=== PATIENT | female | born 1995 | race Caucasian/White ===

== ENCOUNTER 2022-12-31 20:27 | Outpatient (CLI) | payer BC, SELFPAY ==
--- NOTE | 2022-12-31 20:27 | PC.NURSE ---
pt here due to swelling and itching. pt complains occasional headaches. denies epigastoric pain. will call Dr. Hirsch for lab order
[2022-12-31 20:53] VITALS: BP 132/81; PULSE 87
[2022-12-31 21:00] VITALS: BP 131/78; PULSE 94
[2022-12-31 21:15] VITALS: BP 130/73; PULSE 86
[2022-12-31 21:20] LABS: Basophils Absolute Auto 0.1 K/mm3 (0.0-0.1); Basophils Percent Auto 0.5 % (0.2-1.2); Eosinophils Absolute Auto 0.3 K/mm3 (0-0.3); Hematocrit 37.3 % (37.0-47.0); Hemoglobin 12.6 g/dL (12.0-15.0); Immature Granulocyte Absolute 0.15 K/mm3 (0.00-0.031); Immature Granulocyte Percent A 1.1 % (0-0.5); Lymphocytes Absolute Auto 2.18 K/mm3 (0.9-3.2); Lymphocytes Percent Auto 16.5 % (18.3-44.2); Mean Corpuscular HGB Conc 33.8 g/dl (32-36); Mean Corpuscular Hemoglobin 31.1 pg (26-34); Mean Corpuscular Volume 92.1 fl (80-100); Mean Platelet Volume 12.1 fl (7.4-10.4); Monocytes Percent Auto 7.9 % (2.6-8.5); Neutrophils Absolute Auto 9.5 K/mm3 (1.3-6.7); Platelet Count Result 213 k/mm3 (150-375); Red Blood Count 4.05 M/mm3 (4.2-5.4); Red Cell Distribution Width 12.8 % (11.5-14.5); White Blood Count 13.2 K/mm3 (4.5-10.0)
[2022-12-31 21:30] LABS: Alanine Aminotransferase 19 U/L (6-35); Albumin Level 3.2 g/dL (3.5-5.1); Alkaline Phosphatase 165 U/L (38-126); Anion Gap 5 mmol/L (8-16); Aspartate Amino Transferase 24 U/L (14-36); Bilirubin,Total 0.3 mg/dL (0.2-1.3); Blood Urea Nitrogen 8 mg/dL (7-17); Calcium 8.4 mg/dL (8.4-10.2); Carbon Dioxide 22 mmol/L (22-30); Chloride 107 mmol/L (98-107); Estimated Glomerular Filt Rate > 60; Glucose 122 mg/dL (65-110); Potassium 3.4 mmol/L (3.4-5.0); Sodium 134 mmol/L (137-145); Uric Acid 4.5 mg/dL (2.5-7.5)
[2022-12-31 21:31] VITALS: BP 132/52; PULSE 85
[2022-12-31 21:32] LABS: Appearance Urine Slightly Cloudy (Clear); Bilirubin Urine Negative (Negative); Blood Urine Negative (Negative); Color Urine Yellow (Yellow); Glucose Urine UA Negative (Negative); Ketones Urine Negative (Negative); Leukocyte Esterase Ur Negative LEU/UL (NEGATIVE); Nitrate Urine Negative (Negative); Protein Urine Negative (Negative); Specific Grav Ur 1.015 (1.001-1.035); Urobilinogen Urine 0.2 mg/dL (<2.0)
[2022-12-31 21:35] LABS: Amorphous Sediment Urine Few; Bacteria Urine 3+ /hpf; Mucus Urine Rare /lpf; Squamous Epithelial Cell Urine Occasional /hpf (Few)
[2022-12-31 21:37] LABS: Add Urine Microscopic? YES
[2022-12-31 21:45] VITALS: BP 123/71; PULSE 85
[2022-12-31 21:50] VITALS: BP 123/71; PULSE 80
[2022-12-31 22:30] LABS: Creatinine Urine 55.3 mg/dL; Total Protein Urine Random 10 mg/dL; Ur Ttl Prot Creatinine Ratio 0.18 mg/mg (0-0.20)
[2023-01-10 13:36] LABS: Chenodeoxycholic Acid <0.5 umol/L (< OR = 3.9); Cholic Acid <0.5 umol/L (< OR = 2.8); Deoxycholic Acid 1.6 umol/L (< OR = 2.3); Total Bile Acids 1.6 umol/L (< OR = 8.3)
== END 2022-12-31 21:56 | disposition home or self-care (01) ==
LOC: ANHOBOP 20:30 → ANHOBPP 01-06 06:26
PROVIDERS: Obstetrics & Gynecology Gynecology; Visit Provider Advanced Practice Midwife
DX: O99.891 Other specified diseases and conditions complicating pregnancy (principal); R60.9 Edema, unspecified; R51.9 Headache, unspecified
CPT/HCPCS: 36415; 59025; 80053; 81001; 81050; 82542; 82570; 84156; 84550; 85025; 87086; 99199

== ENCOUNTER 2023-01-01 08:21 | Outpatient (NON) | payer BC, SELFPAY ==
[2023-01-01 21:29] LABS: Total Protein Urine Random 12 mg/dL
[2023-01-01 21:30] LABS: Creatinine Urine 66.7 mg/dL
[2023-01-01 21:46] LABS: Creatinine 24 Hour Urine 1.8 gm/24 (0.8-1.8); Total Volume 24 Hour Urine 2800 ml
[2023-01-01 21:47] LABS: Specific Gravity Ur 1.015; Total Protein Urine 24 Hr 336 mg/24hr (28-141); Total Volume 24 Hour Urine 2800 ml
== END 2023-01-01 08:22 | disposition home or self-care (01) ==
LOC: ANHLAB 01-29 08:23
PROVIDERS: Obstetrics & Gynecology Gynecology; PCP Nurse Practitioner Family; Visit Provider Advanced Practice Midwife
DX: O13.9 Gestational [pregnancy-induced] hypertension without significant proteinuria, unspecified trimester (principal); O26.899 Other specified pregnancy related conditions, unspecified trimester; L29.9 Pruritus, unspecified; Z3A.00 Weeks of gestation of pregnancy not specified
CPT/HCPCS: 81050; 82570; 84156

== ENCOUNTER 2023-01-08 19:36 | Inpatient (IN) | payer BC, SELFPAY ==
[2023-01-08] VITALS (10 sets, daily range): BP systolic 127–145; BP diastolic 80–87; PULSE 73–91; RESP 18; TEMP 36.5–36.7; BMI 36.5
--- NOTE | 2023-01-08 20:12 | P.PNAN_ITS ---
Anes - Eval Pre Procedure Procedure: Labor Epidural Date/Time: 01/08/23 20:12 Surgeon: Torrey Preop Diagnosis: Labor Pain Pre Op Diagnosis: IOL Patient Data Age: 27 Gender: F Height: Weight: Last Vital Signs Pulse 91 01/08/23 20:01 BP 142/80 H 01/08/23 20:01 Allergies Allergy/AdvReac Type Severity Reaction Status Date / Time No Known Allergies Allergy Verified 12/09/22 13:35 Home Medications Medication Instructions Recorded Confirmed Type aspirin 81 mg tablet 81 mg PO DAILY 12/09/22 12/09/22 History citalopram 20 mg tablet (Celexa) 20 mg PO DAILY 12/09/22 12/09/22 History loratadine 10 mg tablet (Claritin) 10 mg PO DAILY 12/09/22 12/09/22 History prenat.vits,david,hyu-qagn-edylj 1 tablet PO HS 12/09/22 12/09/22 History Patient hx anesthesia problems: none Family hx anesthesia problems: none Results Review: All pre-operative results and documents have been reviewed as part of the pre- operative evaluation. FORMERLY [facility], [facility]1983 Family History Family History Other Patient denies significant medical history Social History Social History Substance use: never Spiritual care concerns: No Exam Day of Procedure 01/08/23 20:12
--- NOTE | 2023-01-08 20:29 | LDADM ---
This patient, Jhoana Chan, was admitted to Labor/Delivery/Recovery 103 on 01/08/23 at 19:36. Plans for labor, pain management and were discussed with patient. Patient/family oriented to hospital policies and general routines including ID bracelet, bed and alarms, visiting hours, pain management, procedures, bathroom and other care routines, personal items, smoking policy, room service/diet and guest tray routines, infant security routines, and visiting hours. Patient/Family are encouraged to report perceived risks to care and to ask questions if they do not understand what they are told or what they should do. See OBIX for further documentation.
[2023-01-08 20:50] LABS: Basophils Absolute Auto 0.1 K/mm3 (0.0-0.1); Basophils Percent Auto 0.4 % (0.2-1.2); Eosinophils Absolute Auto 0.3 K/mm3 (0-0.3); Hematocrit 37.4 % (37.0-47.0); Hemoglobin 12.6 g/dL (12.0-15.0); Immature Granulocyte Absolute 0.16 K/mm3 (0.00-0.031); Immature Granulocyte Percent A 1.2 % (0-0.5); Lymphocytes Absolute Auto 2.11 K/mm3 (0.9-3.2); Lymphocytes Percent Auto 15.3 % (18.3-44.2); Mean Corpuscular HGB Conc 33.7 g/dl (32-36); Mean Corpuscular Hemoglobin 31.3 pg (26-34); Mean Platelet Volume 12.6 fl (7.4-10.4); Monocytes Absolute Auto 0.8 K/mm3 (0.1-0.6); Monocytes Percent Auto 5.5 % (2.6-8.5); Neutrophils Absolute Auto 10.4 K/mm3 (1.3-6.7); Neutrophils Percent Auto 75.6 % (45.5-73.1); Platelet Count Result 211 k/mm3 (150-375); Red Blood Count 4.02 M/mm3 (4.2-5.4); Red Cell Distribution Width 13.1 % (11.5-14.5); White Blood Count 13.8 K/mm3 (4.5-10.0)
[2023-01-08] MEDS: LACTATED RINGERS 1,000 ML 125 ML IV CONT (20:52)
[2023-01-08 21:01] LABS: Alanine Aminotransferase 20 U/L (6-35); Albumin Level 3.6 g/dL (3.5-5.1); Alkaline Phosphatase 152 U/L (38-126); Anion Gap 9 mmol/L (8-16); Aspartate Amino Transferase 24 U/L (14-36); Bilirubin,Total 0.4 mg/dL (0.2-1.3); Blood Urea Nitrogen 11 mg/dL (7-17); Calcium 8.5 mg/dL (8.4-10.2); Carbon Dioxide 18 mmol/L (22-30); Chloride 105 mmol/L (98-107); Estimated CRCL calculation 152 ml/min; Estimated Glomerular Filt Rate > 60; Glucose 120 mg/dL (65-110); Potassium 3.4 mmol/L (3.4-5.0); Sodium 132 mmol/L (137-145)
[2023-01-08] MEDS: DINOPROSTONE 10 MG VAG INSERT VAGINAL (22:30)
[2023-01-09] VITALS (271 sets, daily range): BP systolic 80–157; BP diastolic 50–138; PULSE 72–188; RESP 16–18; TEMP 36.6–37.1; O2SAT 94–100
[2023-01-09] MEDS: ACETAMINOPHEN 325 MG TABLET 650 MG PO (07:09)
--- NOTE | 2023-01-09 09:30 | PC.NURSE ---
Patient pain assessed at 0809 Patient states headache is better. no pain other then feeling some cramping at this time.
--- NOTE | 2023-01-09 10:49 | PM.OBPNLAB ---
Pain Control Date/time seen: 01/09/23 10:35 Pain control: tolerating well Comments: Feeling vaginal discomfort/tenderness Pelvic Exam Dilation (cm): 0 station: -3 Amniotic membrane status: Intact Contractions Monitor mode: External Contraction pattern: Irregular Contraction phase: Contraction Contraction intensity: Mild Status status: Category l Assessment and Plan Assessment: induction ongoing Comments: CNM at bedside. SVE very challenging due to vaginal tenderness. Cervix remains closed. Recommend sublingual misoprostol and then consider pitocin and zazueta balloon placement. All questions answered. Pt's family present and supportive.
[2023-01-09] MEDS: miSOPROStol 25 MCG TABLET PO (11:05)
[2023-01-09] MEDS: LACTATED RINGERS 1,000 ML 125 ML IV CONT ×2 (15:09→19:56)
[2023-01-09] MEDS: OXYTOCIN 30 UNITS/NS 500 ML 30 UNITS/500 ML BAG IV CONT (15:10)
--- NOTE | 2023-01-09 22:07 | WPDANESEPP ---
Anes - Eval Pre Procedure Date/Time: 01/09/232134 Surgeon: Torrey Preop Diagnosis: LABOR PAIN Pre Op Diagnosis: IOL Patient Data Age: 27 Gender: F Height: 1.73 m Weight: 109 kg Last Vital Signs Temp 36.8 C 01/09/23 18:30 Pulse 110 H 01/09/23 22:06 Resp 16 01/09/23 18:30 BP 120/58 L 01/09/23 22:06 Pulse Ox 99 01/09/23 22:02 O2 Del Method Room Air 01/08/23 20:26 Allergies Allergy/AdvReac Type Severity Reaction Status Date / Time No Known Allergies Allergy Verified 12/09/22 13:35 Home Medications Medication Instructions Recorded Confirmed Type aspirin 81 mg tablet 81 mg PO DAILY 12/09/22 12/09/22 History citalopram 20 mg tablet (Celexa) 20 mg PO DAILY 12/09/22 12/09/22 History loratadine 10 mg tablet (Claritin) 10 mg PO DAILY 12/09/22 12/09/22 History prenat.vits,david,ddl-jqkl-ojmmd 1 tablet PO HS 12/09/22 12/09/22 History Patient hx anesthesia problems: none Family hx anesthesia problems: none Results Review: All pre-operative results and documents have been reviewed as part of the pre-operative evaluation. [facility] Family History Family History Other Patient denies significant medical history Social History Social History Smoking status: Never smoker Substance use: never Lack of Transportation: No Lack of Food: Never True Current Housing: I Have Housing Concerned About Future Housing: No Difficulty Paying Gas/Electric Bills: No Difficulty Paying for Meds: No Currently Unemployed: No Education: Bachelor's Degree Difficulty w/ Childcare or Family Care: No Spiritual care concerns: No Exam Day of Procedure 01/09/23 22:07 Patient weight: normal Heart: regular rate and rhythm Lungs: clear to auscultation Airway: Mallampati scale class II Neurological: alert and oriented
--- NOTE | 2023-01-09 22:08 | WPDANESEPN ---
Anes - Epidural Procedure Note Date/Time: 01/09/23 22:08 Consent: I have discussed with the patient/family/POA, the placement of an epidural catheter and the use of epidural narcotic/local anesthetic for labor analgesia and/or postoperative pain management, including associated potential risks, benefits, complications and side effects. I have discussed alternative methods of labor analgesia and/or postoperative pain management. The patient/family/POA, understand(s) and wish(es) to proceed with epidural narcotic/local anesthetic for labor analgesia and/or postoperative pain management. Time-Out: A pre-procedural Time-Out was completed immediately before starting the procedure and confirmed: Patient Identification, Site, Procedure, Patient Position and the Availability of Requisite Equipment. Clinical Indications: Labor Pain Epidural Insertion Note Patient position: sitting Skin prep: chlorhexidine and sterile drape Needle: 17g Tuohy Catheter: 20g Unstyleted Technique: Loss of resistance. Level of insertion: L3/4 Catheter skin margarita (cm): 5 Length in epidural space (cm): 10 Skin anesthesia: lidocaine 1% Test dose: 1.5% Lidocaine with 1:[id number] Epi, negative for subarachnoid Inj and negative for intravascular Inj Time of test dose: 21:55 Observations: tolerated well Complications: none
[2023-01-09] MEDS: ONDANSETRON INJ 4 MG/2 ML VIAL IV PUSH (22:12)
[2023-01-10] VITALS (401 sets, daily range): BP systolic 90–220; BP diastolic 46–148; PULSE 70–171; RESP 14–20; TEMP 36.3–38; O2SAT 92–100
[2023-01-10] MEDS: miSOPROStol 25 MCG TABLET BY MOUTH (01:00)
[2023-01-10] MEDS: LACTATED RINGERS 1,000 ML 125 ML IV CONT ×3 (05:04→18:53)
--- NOTE | 2023-01-10 07:54 | PM.OBPNLAB ---
Pain Control Date/time seen: 01/10/23 07:45 Pain control: tolerating well and epidural Pelvic Exam Dilation (cm): 1 Effacement (%): 70 station: -3 Amniotic membrane status: Intact Contractions Monitor mode: External Contraction pattern: Irregular Contraction phase: Contraction Contraction intensity: Mild Status status: Category l Assessment and Plan Pitocin rate (mU/min): 10 Assessment: induction ongoing Comments: CNM to bedside. Discussed plan of care. Discussed Byrnes balloon placement including risks and benefits. Patient and spouse are agreeable. Byrnes balloon placed through cervical os using stylet. Inflated with 60 mL sterile saline and stylet removed. Tubing secured patient's thigh. Recommend gentle traction at least once per hour on the Byrnes balloon. Will plan to up titrate Pitocin as needed to achieve adequate contraction pattern. Once the Byrnes balloon is expelled, plan for amniotomy. All questions answered. Anticipate vaginal . Dr. Hirsch updated.
--- NOTE | 2023-01-10 12:09 | P.PNOB_ITS ---
Pain Control Date/time seen: 01/10/23 1155 Pain control: tolerating well and epidural Pelvic Exam Dilation (cm): 5 Effacement (%): 75 station: -3 Amniotic membrane status: Intact Comments: head well applied to cervix. Contractions Monitor mode: External Contraction frequency: 3 Contraction duration: 60 Contraction pattern: Irregular Contraction phase: Contraction Contraction intensity: Mild Status status: Category l Assessment and Plan Pitocin rate (mU/min): 12 Assessment: induction ongoing Comments: CNM to bedside. Byrnes balloon recently expelled. Discussed recommendation for amniotomy and IUPC placement. Pt and spouse agreeable. AROM performed with minimal fluid returned. IUPC placed and returned with dark brown amniotic fluid. Patient tolerated procedure well. Discussed meconium stained fluid with pt and that 911 operator would be present for . Recommend frequent maternal repositioning. Anticipate vaginal .
[2023-01-10 12:32] LABS: Rapid Plasma Reagin Non-Reactive (NonReactive)
[2023-01-10] MEDS: ONDANSETRON INJ 4 MG/2 ML VIAL IV PUSH ×2 (15:01→18:52)
--- NOTE | 2023-01-10 17:32 | PM.OBPNLAB ---
Pain Control Date/time seen: 01/10/23 17:20 Pain control: tolerating well and epidural Pelvic Exam Dilation (cm): 5 Effacement (%): 80 station: -2 Amniotic membrane status: Ruptured Contractions Monitor mode: Internal Contraction frequency: 3 (2-5) Contraction duration: 60 (60-90) Contraction pattern: Irregular Status status: Category l Assessment and Plan Pitocin rate (mU/min): 12 Assessment: induction ongoing Plan: continuous present management Comments: SVE with change in station. Discussed plan of care with pt and family. Recommend increasing pitocin as needed to achieve adequate MVUs. Once MVUs adequate x 2 hours, recommend SVE. Tracing Cat 1 .
[2023-01-10] MEDS: diphenhydrAMINE HCl INJ 50 MG/ML VIAL 25 MG IV PUSH ×3 (17:42→21:07)
[2023-01-10] MEDS: CALCIUM CARBONATE (TUMS) 500 MG (200 MG ELEMENTAL) 400 MG (21:05)
[2023-01-10] MEDS: CALCIUM CARBONATE (TUMS) 500 MG (200 MG ELEMENTAL) 400 MG PO (21:05)
[2023-01-10] MEDS: OXYTOCIN 30 UNITS/NS 500 ML 30 UNITS/500 ML BAG IV CONT (22:27)
[2023-01-10] MEDS: AMPICILLIN 2 GM/NS 100 ML 2 GM/100 ML BAG IVPB (22:58)
--- NOTE | 2023-01-10 23:10 | WPDANESEPN ---
Anes - Epidural Procedure Note Date/Time: 01/10/23 23:10 Consent: I have discussed with the patient/family/POA, the placement of an epidural catheter and the use of epidural narcotic/local anesthetic for labor analgesia and/or postoperative pain management, including associated potential risks, benefits, complications and side effects. I have discussed alternative methods of labor analgesia and/or postoperative pain management. The patient/family/POA, understand(s) and wish(es) to proceed with epidural narcotic/local anesthetic for labor analgesia and/or postoperative pain management. Time-Out: A pre-procedural Time-Out was completed immediately before starting the procedure and confirmed: Patient Identification, Site, Procedure, Patient Position and the Availability of Requisite Equipment. Clinical Indications: Labor Pain Epidural Insertion Note Patient position: sitting Skin prep: chlorhexidine and sterile drape Needle: 17g Tuohy Catheter: 20g Unstyleted Technique: Loss of resistance. Level of insertion: L4/5 Catheter skin margarita (cm): 6 Length in epidural space (cm): 11 Skin anesthesia: lidocaine 1% Test dose: 1.5% Lidocaine with 1:[id number] Epi, negative for subarachnoid Inj and negative for intravascular Inj Time of test dose: 22:50 Observations: tolerated well Complications: none
[2023-01-10] MEDS: GENTAMICIN 80MG/SOD CHL 50 ML 80 MG/50 ML BAG 100 MG IVPB (23:33)
[2023-01-11] VITALS (222 sets, daily range): BP systolic 86–160; BP diastolic 48–125; PULSE 72–141; RESP 13–20; TEMP 36.2–37.4; O2SAT 91–100
[2023-01-11] MEDS: AMPICILLIN 1 GM/NS 50 ML 1 GM/50 ML BAG IVPB ×2 (02:59→07:01)
[2023-01-11] MEDS: FAMOTIDINE 10 MG TABLET PO (03:01)
[2023-01-11] MEDS: LORATADINE 10 MG TABLET PO (03:01)
[2023-01-11] MEDS: LACTATED RINGERS 1,000 ML 125 ML IV CONT ×2 (04:44→09:30)
[2023-01-11] MEDS: GENTAMICIN 80MG/SOD CHL 50 ML 80 MG/50 ML BAG 100 MG IVPB (07:37)
--- NOTE | 2023-01-11 10:07 | PM.OBPNLAB ---
Pain Control Date/time seen: 01/11/23 0905 Comments: Having intense uterine contraction pain. Epidural not working per pt. Anesthesia to assess. Pt fatigued and frustrated, asking for section . Contractions Monitor mode: Internal Contraction frequency: 3 (2-5) Contraction pattern: Irregular Contraction phase: Contraction Contraction intensity: Mild Status status: Category l Assessment and Plan Comments: Pitocin discontinued per pt request. Plan to have anesthesia evaluate.
--- NOTE | 2023-01-11 10:15 | PM.IMHP ---
H&P: HPI History of Present Illness Date/Time: 01/11/23 0930 Chief Complaint: labor, contractions Narrative: 27 y.o. at 40 weeks 4 days. IOL Preeclampsia Anxiety/Depression Review of Systems Review of Systems: All systems reviewed & are unremarkable except as noted in HPI and below PMFSH Family History Family History Other Patient denies significant medical history Social History Social History Smoking status: Never smoker Substance use: never Lack of Transportation: No Lack of Food: Never True Current Housing: I Have Housing Concerned About Future Housing: No Difficulty Paying Gas/Electric Bills: No Difficulty Paying for Meds: No Currently Unemployed: No Education: Bachelor's Degree Difficulty w/ Childcare or Family Care: No Spiritual care concerns: No Meds Home Medications and Allergies Home Medications Medication Instructions Recorded Confirmed Type aspirin 81 mg tablet 81 mg PO DAILY 12/09/22 12/09/22 History citalopram 20 mg tablet (Celexa) 20 mg PO DAILY 12/09/22 12/09/22 History loratadine 10 mg tablet (Claritin) 10 mg PO DAILY 12/09/22 12/09/22 History prenat.vits,david,ymp-fhue-raotb 1 tablet PO HS 12/09/22 12/09/22 History Allergies Allergy/AdvReac Type Severity Reaction Status Date / Time No Known Allergies Allergy Verified 12/09/22 13:35 Vital Signs Vital Signs - 24 hr 01/10/23 10:16 01/10/23 10:17 01/10/23 10:22 Temperature Pulse Rate 86 Respiratory Rate Blood Pressure 149/73 H Pulse Oximetry 99 99 Oxygen Delivery 01/10/23 10:27 01/10/23 10:30 01/10/23 10:32 Temperature 99.5 F Pulse Rate 94 Respiratory Rate Blood Pressure 134/78 Pulse Oximetry 99 99 Oxygen Delivery 01/10/23 10:37 01/10/23 10:42 01/10/23 10:45 Temperature Pulse Rate 85 Respiratory Rate Blood Pressure 113/69 Pulse Oximetry 99 98 Oxygen Delivery 01/10/23 10:47 01/10/23 10:52 01/10/23 10:57 Temperature Pulse Rate Respiratory Rate Blood Pressure Pulse Oximetry 99 98 98 Oxygen Delivery 01/10/23 11:00 01/10/23 11:02 01/10/23 11:07 Temperature Pulse Rate 87 Respiratory Rate Blood Pressure 126/70 Pulse Oximetry 99 98 Oxygen Delivery 01/10/23 11:12 01/10/23 11:15 01/10/23 11:17 Temperature Pulse Rate 85 Respiratory Rate Blood Pressure 135/83 Pulse Oximetry 99 98 Oxygen Delivery 01/10/23 11:22 01/10/23 11:27 01/10/23 11:30 Temperature Pulse Rate 94 Respiratory Rate Blood Pressure 154/128 H Pulse Oximetry 98 99 Oxygen Delivery 01/10/23 11:32 01/10/23 11:37 01/10/23 11:42 Temperature Pulse Rate Respiratory Rate Blood Pressure Pulse Oximetry 98 99 99 Oxygen Delivery 01/10/23 11:45 01/10/23 11:47 01/10/23 11:52 Temperature Pulse Rate 84 Respiratory Rate Blood Pressure 147/94 H Pulse Oximetry 99 99 Oxygen Delivery 01/10/23 11:57 01/10/23 12:01 01/10/23 12:06 Temperature Pulse Rate Respiratory Rate Blood Pressure Pulse Oximetry 100 99 99 Oxygen Delivery 01/10/23 12:08 01/10/23 12:13 01/10/23 12:15 Temperature Pulse Rate 83 Respiratory Rate Blood Pressure 137/75 Pulse Oximetry 99 98 Oxygen Delivery 01/10/23 12:18 01/10/23 12:23 01/10/23 12:28 Temperature Pulse Rate Respiratory Rate Blood Pressure Pulse Oximetry 99 98 98 Oxygen Delivery 01/10/23 12:30 01/10/23 12:33 01/10/23 12:38 Temperature 99.2 F Pulse Rate 87 Respiratory Rate Blood Pressure 124/62 Pulse Oximetry 99 98 Oxygen Delivery 01/10/23 12:43 01/10/23 12:45 01/10/23 12:48 Temperature Pulse Rate 82 Respiratory Rate Blood Pressure 120/60 Pulse Oximetry 97 97 Oxygen Delivery 01/10/23 12:53 01/10/23 12:58 02
--- NOTE | 2023-01-11 11:00 | PM.OBPNLAB ---
Pain Control Date/time seen: 01/11/23 1045 Pain control: tolerating well Comments: Pt now has good pain relief from epidural. Pelvic Exam Dilation (cm): 5 Effacement (%): 80 station: -1 Amniotic membrane status: Ruptured Comments: Capput present Contractions Monitor mode: Internal Contraction pattern: Irregular Contraction phase: Contraction Contraction intensity: Mild Status status: Category l Assessment and Plan Comments: Pitocin remains off. Discussed cervical exam with pt and plan of care. Pt desires delivery. Discussed risks, benefits, and expectations. Dr. Hirsch notified. Plan to leave pitocin off and keep pt NPO. Discussed expectations and follow up. Family remains present and supportive.
[2023-01-11] MEDS: ONDANSETRON INJ 4 MG/2 ML VIAL IV PUSH (11:14)
[2023-01-11] MEDS: ceFAZolin 2 GM/D5W 50 ML 2 GM/50 ML BAG IVPB (12:17)
[2023-01-11] MEDS: KETOROLAC 30 MG/ML VIAL (*BKC) IV PUSH (13:02)
--- NOTE | 2023-01-11 13:07 | W.PM.PROC2 ---
Procedure Note - Detailed Date of Procedure 01/11/23 Pre-op Diagnosis Intrauterine at 40 4/7 weeks preeclampsia failure to progress Post-op Diagnosis Same Procedure Performed primary low-transverse section Surgeon Rosalinda Hirsch MD Anesthesia Epidural Findings female right occiput posterior with 6 [id number] and 8 [id number] weighing 8lb 11oz thick meconium stained fluid, infant, placenta, uterus normal-appearing tubes, ovaries, uterus Description of Procedure The patient was taken to the operating room and placed under anesthesia in the dorsal supine position with a leftward tilt. Once anesthesia was deemed adequate, a Pfannenstiel skin incision was made with a scalpel and carried down to the underlying layer of fascia which was nicked in the midline. The fascial incision was extended laterally using Rodriguez scissors. Ochsner was used to tent the fascia which was then dissected off using sharp dissection. The rectus muscles are in the midline and the peritoneum tented and entered with a Peon. The incision was extended with blunt traction. The bladder blade is placed. The vesicouterine peritoneum was tented and entered with Metzenbaum and extended laterally. The bladder flap was created digitally. The bladder blade is replaced. The bladder is noted to be very edematous. The lower uterine segment was incised in a transverse fashion with a scalpel and extended laterally using blunt traction. The infant's head was brought up into the incision and noted to be deep in the pelvis. The was fully delivered with assistance from the 1st assist applying pressure at the fundus. The cord was clamped and cut the handed to the awaiting OB nurse. The placenta was removed using manual traction after cord gases and cord blood were drawn. The uterus is cleared of all clots and debris and exteriorized. The right angle extended downward to the sulcus. The angle was grasped with 2 Allis clamps. The distal edge was grasped with ring forceps x2. The bladder was extending beyond the bladder flap despite multiple repositioning. . A lap sponge was placed to hold the bladder back and then the bladder blade was replaced with good affect of retraction. The uterine incision was closed using 0 Monocryl in a running locked fashion. Second layer of same suture was used to imbricate and obtain hemostasis. The cul-de-sac is irrigated and the uterus returned to the abdomen. The gutters are cleared of all clots and debris. The incision was again inspected noted to be hemostatic. The lap sponge is removed and the bladder flap inspected. One bleeding vessel was cauterized for hemostasis. The incision and bladder flap are hemostatic and all instruments are removed. The fascia was then closed using 0 Vicryl in a running fashion. Subcutaneous tissues are irrigated and the subcutaneous tissue made hemostatic using Bovie cautery. Skin incision was closed using 4-0 Vicryl in a subcuticular fashion. Dermaflex was placed over the incision. Sponge, needle, and instrument counts are correct per the OR staff. Patient was given Ancef at the time of the incision and the Zithromax was approximately half infused at the time of the incision and continued infusing throughout the case. The patient was taken to recovery in stable condition. Estimated Blood Loss 780 Drains Yes ( Byrnes catheter) Packing No Pathology Yes ( placenta) Complications No immediate complications Condition Stable Disposition Floor
--- NOTE | 2023-01-11 13:15 | PM.OBDSVD ---
DS: Admitting Diagnosis Discharge Date 01/13/23 Admitting Diagnosis intrauterine at 40 weeks for medical induction of labor secondary to preeclampsia DS: Discharge Diagnosis Discharge Diagnosis (1) Preeclampsia: Code(s): O14.90 - Unspecified pre-eclampsia, unspecified trimester Status: Acute (2) delivery delivered: Code(s): O82 - Encounter for delivery without indication Status: Acute (3) Failure to progress in labor, delivered, current hospitalization: Code(s): O62.2 - Other uterine inertia Status: Acute OB - DS: Summary OB Procedures : NST, PIH Mgmt and Ultrasound OB Procedures Intrapartum: low cervical, transverse OB Procedures: : None Peripartum Data Delivery Method: Section Procedures: Procedures Operation Date: 01/11/23 11:30 <No data on this case meets the specified criteria> complications: none Status at Discharge Functional status at discharge: independent ambulation Overall status at discharge: patient is progressing back to baseline Time Spent with Patient Time attestation: Total time spent providing and/or coordinating discharge services: Discharge Plan Discharge Attending physician on discharge: Rosalinda Hirsch Discharging Clinician: Rosalinda Hirsch Anticipated Discharge Date/Time: 01/14/23 13:20 Patient Disposition: Home, Self-Care Activity: may shower, may drive after 2 weeks and pelvic rest Diet: regular Wound Care Instructions: incision open to air Patient Instructions: Antibiotic Form Stand Alone Forms: General Discharge Information Follow-up/Referrals: Rosalinda Hirsch MD [Physician] - 1 Week ( and 6 week) Discharge Medications: New hydrocodone-acetaminophen 5-325 mg tablet 1 tablet PO Q4H PRN (Reason: pain) Qty: 14 0RF Continued citalopram [Celexa] 20 mg Tablet 20 mg PO DAILY loratadine [Claritin] 10 mg Tablet 10 mg PO DAILY #2 Tablet 1 tablet PO HS Discontinued Adult Low Dose Aspirin 81 mg Tablet 81 mg PO DAILY Date of admission: 01/08/23 19:36 Primary Care Provider: NohemyYelitza Admitting Provider: Rosalinda Hirsch Attending physician on admission: Rosalinda Hirsch Condition: Stable
[2023-01-11] MEDS: OXYTOCIN 30 UNITS/NS 500 ML 30 UNITS/500 ML BAG 125 UNITS IV CONT (13:25)
--- NOTE | 2023-01-11 15:35 | PC.NURSE ---
Patient transferred to post room #281 via stretcher. Support person present. Oriented to unit, room, information board, rooming in, admission packet and security measures. Patient verbalizes understanding.
[2023-01-11] MEDS: HYDROcodone/acetaminophen (*CRX) 10-325 MG TABLET 1 TAB PO (21:01)
[2023-01-12] MEDS: HYDROcodone/acetaminophen (*CRX) 10-325 MG TABLET 1 TAB PO ×5 (02:44→18:33)
[2023-01-12 03:10] VITALS: BP 119/64; PULSE 95; RESP 18; TEMP 36.4; O2SAT 99
[2023-01-12 03:23] LABS: Hematocrit 32.2 % (37.0-47.0); Hemoglobin 10.8 g/dL (12.0-15.0); Mean Corpuscular HGB Conc 33.5 g/dl (32-36); Mean Corpuscular Hemoglobin 31.6 pg (26-34); Mean Corpuscular Volume 94.2 fl (80-100); Mean Platelet Volume 12.3 fl (7.4-10.4); Platelet Count Result 178 k/mm3 (150-375); Red Blood Count 3.42 M/mm3 (4.2-5.4); Red Cell Distribution Width 13.2 % (11.5-14.5); White Blood Count 23.8 K/mm3 (4.5-10.0)
[2023-01-12 03:44] LABS: Band Neutrophils Percent 5 % (0-6); Lymphocytes Absolute Manual 2.14 K/mm3 (1.1-4.5); Monocytes Absolute Manual 1.42 K/mm3 (0.1-0.90); Monocytes Percent Manual 6 % (3-9); Neutrophils Absolute Manual 20.23 K/mm3 (1.7-7.2); Neutrophils Percent Manual 80 % (46-73); Total Cells Counted 100
[2023-01-12 03:45] LABS: Platelet Estimate Adequate (Adequate)
[2023-01-12 03:46] LABS: Schistocytes None Seen (NORMAL)
[2023-01-12] MEDS: IBUPROFEN 600 MG TABLET PO ×3 (05:11→18:32)
[2023-01-12] MEDS: MULTIVIT/MIN/PREN/FOL AC/IRON TABLET 1 TAB PO (07:05)
[2023-01-12] MEDS: DOCUSATE SODIUM 100 MG CAPSULE PO ×2 (07:05→18:46)
[2023-01-12] MEDS: SIMETHICONE 80 MG TAB.CHEW PO ×2 (07:05→15:05)
--- NOTE | 2023-01-12 08:15 | P.PNOB_ITS ---
OB - PN: Subj Subjective Date/time seen: 01/12/23 08:15 Patient comments: no complaints and pain well controlled baby status: doing well OB - PN: Obj Data Labs 01/12/23 03:06 01/08/23 20:18 Labs: Laboratory Results - last 24 hr 01/12/23 03:06 WBC 23.8 H RBC 3.42 L Hgb 10.8 L Hct 32.2 L MCV 94.2 MCH 31.6 MCHC 33.5 RDW 13.2 Plt Count 178 MPV 12.3 H Immature Gran % (Auto) Not Reportable Neut % (Auto) Not Reportable Lymph % (Auto) Not Reportable [place] % (Auto) Not Reportable Eos % (Auto) Not Reportable Baso % (Auto) Not Reportable Lymph # (Auto) Not Reportable [place] # (Auto) Not Reportable Eos # (Auto) Not Reportable Baso # (Auto) Not Reportable Abs Immat Gran (auto) Not Reportable Absolute Neuts (auto) Not Reportable Absolute Nucleated RBC Not Reportable Total Counted 100 Neutrophils % (Manual) 80 H Band Neutrophils % 5 Lymphocytes % (Manual) 9.0 L Monocytes % (Manual) 6 Nucleated RBC % Not Reportable Abs Neuts (Manual) 20.23 H Abs Lymphs (Manual) 2.14 Abs Monocytes (Manual) 1.42 H Platelet Estimate Adequate Schistocytes None seen OB - PN A/P Plan day: 1 Plan: routine care Time Spent With Patient Time: Total time spent is greater than 50% in coordination of care (as documented) at patient's floor/unit and/or counseling patient: Exam Narrative: inc c/d/i : Bimanual exam- vagina & uterus: other (Uterus firm, nt @U)
[2023-01-12 08:25] VITALS: BP 110/67; PULSE 93; RESP 16; TEMP 36.6; O2SAT 99
[2023-01-12] MEDS: CITALOPRAM HYDROBROMIDE 20 MG TABLET PO (11:26)
--- NOTE | 2023-01-12 11:39 | WPDANLDPN2 ---
Anes-Prog Note L&D Date/Time: 01/12/23 11:39 Comfortable throughout: section Neuraxial method: epidural Epidural/Spinal procedure site: tender Neuro status: Neuro function grossly intact. Cardiovascular status: normal Respiratory status: normal Airway patency: baseline Mental status: baseline Post-Op hydration status: normal Vital Signs: Last Vital Signs Temp 36.6 C 01/12/23 08:25 Pulse 93 01/12/23 08:25 Resp 16 01/12/23 08:25 BP 110/67 01/12/23 08:25 Pulse Ox 99 01/12/23 08:25 O2 Del Method Room Air 01/12/23 03:10 Pain score (VAS): 3/10 I/O: Intake & Output 01/11/23 01/12/23 01/12/23 23:59 07:59 15:59 Intake Total 1450 500 900 Output Total 2802 230 6628 Balance 450 -125 -500 Post-procedural complaints: none Patient feedback: Patient satisfied with anesthetic care.
[2023-01-12 12:50] VITALS: BP 130/86; PULSE 84
[2023-01-12 16:40] VITALS: BP 117/72; PULSE 80
[2023-01-12 19:00] VITALS: BP 128/80; PULSE 101; RESP 16; TEMP 36.9; O2SAT 99
[2023-01-13] VITALS: BP 135/75; PULSE 107
[2023-01-13] MEDS: HYDROcodone/acetaminophen (*CRX) 10-325 MG TABLET 1 TAB PO (00:19)
[2023-01-13 04:50] VITALS: BP 138/76; PULSE 83; RESP 17; TEMP 36.3; O2SAT 96
[2023-01-13] MEDS: HYDROcodone/acetaminophen (*CRX) 5-325 MG TABLET 1 TAB PO ×4 (04:56→16:48)
[2023-01-13] MEDS: IBUPROFEN 600 MG TABLET PO ×3 (04:56→16:49)
[2023-01-13 07:30] VITALS: BP 127/67; PULSE 90; RESP 16; TEMP 36.6; O2SAT 97
[2023-01-13] MEDS: CITALOPRAM HYDROBROMIDE 20 MG TABLET PO (08:07)
[2023-01-13] MEDS: MULTIVIT/MIN/PREN/FOL AC/IRON TABLET 1 TAB PO (08:07)
[2023-01-13] MEDS: DOCUSATE SODIUM 100 MG CAPSULE PO ×2 (08:07→16:48)
--- NOTE | 2023-01-13 08:27 | P.PNOB_ITS ---
OB - PN: Subj Subjective Date/time seen: 01/13/23 08:27 Patient comments: no complaints, pain well controlled and other (No preeclampsia symptoms) Embarrass baby status: doing well OB - PN: Obj Data Labs 01/12/23 03:06 01/08/23 20:18 OB - PN A/P Assessment and Plan (1) Preeclampsia: Code(s): O14.90 - Unspecified pre-eclampsia, unspecified trimester Status: Acute Assessment and Plan: blood pressures remain stable good diuresis follow-up in 1 week for blood pressure Plan day: 2 Plan: routine care, discharge home and follow up 6 weeks Time Spent With Patient Time: Total time spent is greater than 50% in coordination of care (as documented) at patient's floor/unit and/or counseling patient: Exam Narrative: incision clean dry and intact : Bimanual exam- vagina & uterus: other (Uterus firm, nt @U)
[2023-01-13 11:57] VITALS: BP 128/79; PULSE 92; RESP 16; TEMP 37.2; O2SAT 99
[2023-01-13 15:30] VITALS: BP 129/80; PULSE 94; RESP 16; TEMP 36.5; O2SAT 98
--- NOTE | 2023-01-13 15:42 | PC.NURSE ---
[id number] were made, then consulted with patient to assess needs related to . Mother led the conversation with her?plans to feed?her infant and the?experience so far. Resources provided for inpatient and outpatient services with the feeding sheet and mom/baby guide. Mother voiced understanding of information and requests assistance with infant who is sucking on a pacifier fell asleep after 5 minutes at 1000 . Mother states her experience and plan to feed her infant so far and her ability to independently latch optimally without discomfort. Reminded mother to use good handwashing technique to prevent infection. Mother is feeding appropriately for growth of infant and understands stimulating infant to eat if needed. Infant has had appropriate feedings in the last 24 hours meets the outcomes for weight, output and jaundice at this time according to results and used the pie demonstration to assist with education. Mother states she is confident to continue effectively her at home. Mother works well with her with encouragement and education. Encouraged understanding of the benefits of skin to skin (demonstrating unwrapping and placing upright on her chest), stimulating with massage touch, changing positions to encourage wakefulness, how to watch for early feeding cues, responsive feeding, feeding on demand (aiming for 8-12 times in 24 hours, about every 2-3 hours), milk production, building/maintaining a milk supply, duration of feeding, signs of adequate intake/output and how to record on the feeding sheet. Reviewed positioning and ear, shoulder, hip alignment, supporting the breast to facilitate a deep latch, asymmetrical latch (off-center), leading with the chin with a big, open, wide gape and body close to mother. Infant is fussy and frantic at the breast with challenges to calm infant. RN assisted mother attempting to latch infant optimally to the right/left breast in football position. Infant calmed and latched and suckled 3 times, then stopped. Infant was placed skin to skin and will be given more time since infant is content and meeting goals at this time. Mother voiced understanding to call when begins to show feeding cues, if the latch has discomfort or if infant doesn't wake to breastfeed. [id number] Consulted with patient after Primary RN and patient requested. Infant is resting with her shirt pulled up and showing no feeding cues. placed skin to skin on mother, then when feeding cues were visualized infant was lowered to the breast. is inconsolable. Mother had pumped 3mls and had syringe fed that to her . Mother consents to supplementing with formula related to infant will not resume contentment without sucking on mothers finger. Drops of formula were pace bottle fed to infant, then was able to latch to mother's right breast using football positioning with a few attempts. Education given to mother of how to visualize suck/swallow ratios and listen for drinking at the breast. Infant demonstrates rare swallowing with ratios of suck/swallowing > 3:1 along with non-nutritive sucking. was able to maintain latch without discomfort to mother. Nipple care reviewed with optimal latch and good positioning. Resources used to facilitate learning were used with the tool, mom and baby guide. Mother voiced understanding of skin to skin, stimulating with massage touch, responsive feedings, hand expressed colostrum, talking to infant to encourage if it has been 2 -2.5 hours since the start of the last , to call if does not latch, or if there is discomfort with . Resources provided for inpatient/outpatient with the feeding sheet and the mom/baby guide. Mother has been using her own breast pump due to infant not latching well today. Instructions given on cleaning, care, usage, that there should be no pain, pumping
--- NOTE | 2023-01-13 17:05 | PC.NURSE ---
Patient viewed the discharge video Mother [facility] Baby Care, The First Two Weeks . Patient was given the opportunity and encouraged to ask questions. Patient verbalized understanding of information shared and has been given the mother/baby guide for home reference.
[2023-01-15 10:36] VITALS: BP 138/85; PULSE 89; RESP 20; TEMP 37.3; O2SAT 98
== END 2023-01-13 19:05 | disposition home or self-care (01) | DRG 806 ==
LOC: ANHLDR 01-11 13:20 → ANHOB2 01-11 15:40
PROVIDERS: Admitting Provider Advanced Practice Midwife; PCP Nurse Practitioner Family; Visit Provider Obstetrics & Gynecology Gynecology
PROC: 10E0XZZ Delivery of Products of Conception, External Approach (ICD-10-PCS; CPT 59514; principal; 2023-01-11 11:30)
DX: O14.94 Unspecified pre-eclampsia, complicating childbirth (principal); O75.2 Pyrexia during labor, not elsewhere classified; Z37.0 Single live birth; Z3A.40 40 weeks gestation of pregnancy; O36.8330 Maternal care for abnormalities of the fetal heart rate or rhythm, third trimester, not applicable or unspecified; O62.2 Other uterine inertia; O48.0 Post-term pregnancy; O99.344 Other mental disorders complicating childbirth; F32.A Depression, unspecified; F41.9 Anxiety disorder, unspecified
CPT/HCPCS: 36415; 80053; 85025; 86592; 86850; 86900; 86901; 88307; A9270; J0131; J0290; J0456; J0690; J1100; J1200; J1580; J1885; J2250; J2274; J2405; J2590; J2704; J2795; J7120